=== PATIENT | female | born 1985 | race Caucasian/White ===

== ENCOUNTER → 2016-07-17 | Outpatient (CLI) | payer BC ==
[~2016-07-17] MED LIST: MTR600X PO; OXYC-57 PO; PRENTAB26 PO
[2016-07-17 15:51] LABS: BASO % 0.1 %; BASO ABS # 0.01 K/uL (0-0.2); COMPLETE YES; EOS % 0.6 %; HEMATOCRIT 37.3 % (37-47); IG% 0.3 %; LYMPH % 19.6 %; LYMPH ABS # 1.97 K/uL (1.2-3.4); MEAN CELL VOLUME 84.4 fL (80-100); MEAN CORPUSCULAR HEMOGLOBIN 30.1 pg (25-34); MEAN CORPUSCULAR HGB CONC 35.7 g/dl (32-36); MEAN PLATELET VOLUME 9.3 fL (7.4-10.4); MONO % 4.6 %; NEUT % 74.8 %; PLATELET COUNT 196 K/uL (130-400); RED BLOOD COUNT 4.42 M/uL (4.2-5.4); WHITE BLOOD COUNT 10.07 K/uL (4.8-10.8)
[2016-07-21 01:40] LABS: CHLAMYDIA TRACH RNA*** NOT DETECTED (NOT DETECTED); GC (NEIS GONORRHOEAE)RNA** NOT DETECTED (NOT DETECTED)
== END | disposition home or self-care (01) ==
LOC: C.LAB1850 15:01
PROVIDERS: ATTEND Obstetrics & Gynecology
DX: O09.291 Supervision of pregnancy with other poor reproductive or obstetric history, first trimester (principal)

== ENCOUNTER → 2016-11-27 | Outpatient (CLI) | payer BC ==
[2016-11-27 18:21] LABS: MANUAL MICROSCOPIC REQUIRED? NO; REVIEW REQ? NO; URINE APPEARANCE CLOUDY (CLEAR); URINE BILIRUBIN NEG (NEG); URINE COLOR YELLOW; URINE EPITHELIAL CELL AUTO >30 /lpf (0-5); URINE NITRITE NEG (NEG); URINE SPECIFIC GRAVITY 1.013 (1.000-1.030); UROBILINOGEN NEG (NEG)
== END | disposition home or self-care (01) ==
LOC: C.LABSPEC 17:46
PROVIDERS: ATTEND Obstetrics & Gynecology
DX: O34.219 Maternal care for unspecified type scar from previous cesarean delivery (principal); Z3A.00 Weeks of gestation of pregnancy not specified

== ENCOUNTER → 2017-01-27 | Outpatient (CLI) | payer BC | END | disposition home or self-care (01) | LOC: C.LABSPEC 15:32 | PROVIDERS: ATTEND Obstetrics & Gynecology | DX: Z34.83 Encounter for supervision of other normal pregnancy, third trimester (principal) ==

== ENCOUNTER 2017-02-15 07:22 | Inpatient (IN) | payer BC ==
--- NOTE | 2017-01-27 15:13 | PAT Medication Instructions ---
Service Date Jan 27, 2017. Current Home Medication List Multivit/Min/Iron/Fol Ac/Pren ( Vitamin), 1 TAB PO QPM Medication Instructions For Your Scheduled Surgery - Take the following medications as scheduled the night before surgery: Multivit/Min/Iron/Fol Ac/Pren ( Vitamin), 1 TAB PO QPM If you have any questions please call us at [phone] or [phone] or [phone]
[2017-01-27 16:39] LABS: BASO % 0.1 %; BASO ABS # 0.01 K/uL (0-0.2); COMPLETE YES; EOS % 0.7 %; HEMATOCRIT 35.4 % (37-47); IG% 0.5 %; LYMPH % 16.2 %; LYMPH ABS # 1.77 K/uL (1.2-3.4); MEAN CELL VOLUME 86.8 fL (80-100); MEAN CORPUSCULAR HEMOGLOBIN 29.7 pg (25-34); MEAN CORPUSCULAR HGB CONC 34.2 g/dl (32-36); MEAN PLATELET VOLUME 9.4 fL (7.4-10.4); MONO % 5.4 %; NEUT % 77.1 %; PLATELET COUNT 186 K/uL (130-400); RED BLOOD COUNT 4.08 M/uL (4.2-5.4)
[2017-01-27 16:41] LABS: BLOOD UREA NITROGEN 10 mg/dl (7-18); BUN/CREATININE RATIO 18.3 (10-20); CALCIUM 9.1 mg/dl (8.5-10.1); CARBON DIOXIDE 22 mmol/L (21-32); CHLORIDE 108 mmol/L (98-107); CREATININE 0.56 mg/dl (0.60-1.20); GLUCOSE 132 mg/dl (70-99); POTASSIUM 3.7 mmol/L (3.5-5.1); SODIUM 140 mmol/L (136-145)
--- NOTE | 2017-01-28 19:44 | History and Physical ---
History & Physical Date Jan 28, 2017. Chief Complaint hx of previous c/s, desires repeat. History of Present Illness The patient is a 31 year old female with iup at 39+ weeks who presents for repeat c/s. Patient notes +fm, rare contractions, no lof, no vb. Her first was complicated by failure to descend, thick meconium and NRFHT, 8# 11oz. She declines NEELAM. She declines TL. She has diet-controlled GDM that has been well controlled. Past Medical/Surgical History Pmhx--hx of varicella psxhx--colpo 2011, oral, c/s Additional History Hepatic Disease: No Endocrine Disorder: No Kidney Disease: No Hypertension: No Heart Disease: No Bleeding Tendencies: No Infectious Diseases: No LMP: Allergies Coded Allergies: No Known Allergies (Unverified , 01/27/17) Home Medications Scheduled Multivit/Min/Iron/Fol Ac/Pren ( Vitamin), 1 TAB PO QPM Physical Examination Skin: warm/dry Neck: supple, no adenopathy Respiratory/Chest: lungs clear, normal breath sounds Cardiovascular: regular rate, rhythm Abdomen / GI: + pertinent finding (soft, gravid and nontender.) Extremities: normal inspection Neurologic/Psych: alert, oriented x 3 Diagnosis IUP at 39 weeks. hx of previous c/s, desires repeat. Plan of Treatment Plan repeat . the risks of the procedure were discussed with the patient including bleeding requiring a transfusion, infection and poor wound healing, damage to surrounding structures (bowel, bladder, vessels, nerves, ureters) that may require further surgery, hospitalization or treatment, pulmonary complications, DVT, injury to baby. The risks of any surgery discussed including heart attack, blood clot, stroke and . Alternatives include trial of labor which she declines. c/s planned for 02/15.
[~2017-02-15] VITALS: Ht 157.5 cm; Wt 65.9 kg
[2017-02-15] VITALS (9 sets, daily range): BP systolic 121–123; BP diastolic 73–77; PULSE 79–91; TEMP 36.5–36.8; O2SAT 97–99; Ht 157.5 cm; Wt 65.9 kg
[~2017-02-15 07:22] MED LIST changes: -MTR600X PO; -OXYC-57 PO
[2017-02-15] MEDS ORDERED: CITRIC ACID/SODIUM CITRATE 15 ML UDC PO STA (08:16)
[2017-02-15 08:30] LABS: BASO % 0.1 %; BASO ABS # 0.01 K/uL (0-0.2); COMPLETE YES; EOS % 0.8 %; HEMATOCRIT 36.5 % (37-47); IG% 0.4 %; LYMPH % 20.3 %; LYMPH ABS # 1.87 K/uL (1.2-3.4); MEAN CELL VOLUME 87.1 fL (80-100); MEAN CORPUSCULAR HEMOGLOBIN 29.6 pg (25-34); MEAN PLATELET VOLUME 9.4 fL (7.4-10.4); NEUT % 71.4 %; PLATELET COUNT 170 K/uL (130-400); RED BLOOD COUNT 4.19 M/uL (4.2-5.4); WHITE BLOOD COUNT 9.23 K/uL (4.8-10.8)
[2017-02-15] MEDS ORDERED: CEFAZOLIN 2000 MG/60 ML D5W IV SCH (09:00)
[2017-02-15] MEDS ORDERED: NURSING VERBAL MED ORDER ONE (09:00)
[2017-02-15] MEDS: LACTATED RINGER'S 1000ML 1,000 ML IV SCH (09:04)
[2017-02-15] MEDS ORDERED: MoRPHine SULFATE PF 1 MG/ML 10 ML AMP/VIAL ONE (09:34)
[2017-02-15] MEDS ORDERED: EpHEDrine SULFATE 50MG/5ML SYR ONE (09:34)
[2017-02-15] MEDS ORDERED: OXYTOCIN INJ 10 UNITS/ML VIAL ONE (09:34)
--- NOTE | 2017-02-15 09:48 | History & Physical Bridge Note ---
H&P Re-Evaluation Bridge Note: I have examined the patient, reviewed the History & Physical and in the interval since the performance of the History & Physical I have noted the following changes of clinical significance: No changes noted
[2017-02-15] MEDS ORDERED: FENTANYL CITRATE INJ 50 MCG/1 ML 2 ML VIAL ONE (10:53)
[2017-02-15] MEDS ORDERED: NALOXONE HCL INJ 0.08 MG in SYRINGE 1.8 ML IV PRN (10:58)
[2017-02-15] MEDS ORDERED: SODIUM CHLORIDE 0.9% 1000ML 1,000 ML IV PRN (10:58)
[2017-02-15] MEDS ORDERED: NALOXONE HCL INJ 1 MG in SODIUM CHLORIDE 0.9% 1000ML 1,000 ML IV PRN (10:58)
[2017-02-15] MEDS ORDERED: LACTATED RINGER'S 1000ML 500 ML IV PRN (10:58)
[2017-02-15] MEDS ORDERED: NO NARCOTICS OR SEDATIVES SCH (11:00)
[2017-02-15] MEDS ORDERED: DiphenhydrAMINE HCL 50 MG/ML VIAL IV PRN ×2 (11:00)
[2017-02-15] MEDS ORDERED: NALOXONE HCL 0.4 MG/1 ML VIAL/CARP IV PRN (11:00)
[2017-02-15] MEDS ORDERED: EpHEDrine SULFATE INJ 50 MG/ML AMP IV PRN ×2 (11:00)
[2017-02-15] MEDS ORDERED: MEPERIDINE HCL 25 MG/ML CARP IV PRN ×2 (11:00)
[2017-02-15] MEDS ORDERED: MoRPHine SULFATE 2 MG/ML CARP IV PRN (11:00)
[2017-02-15] MEDS ORDERED: MoRPHine SULFATE PF 1 MG/ML 10 ML AMP/VIAL EPI PRN (11:00)
[2017-02-15] MEDS ORDERED: HYDROmorphone INJ 1 MG/ML SYR IV PRN (11:00)
[2017-02-15] MEDS ORDERED: KETOROLAC TROMETHAMINE 30 MG/ML VIAL IV. PRN (11:00)
[2017-02-15] MEDS ORDERED: LABETALOL HCL IV 5 MG/ML 20ML IV PRN (11:00)
[2017-02-15] MEDS ORDERED: FENTANYL CITRATE INJ 50 MCG/1 ML 2 ML VIAL IV PRN (11:00)
[2017-02-15] MEDS ORDERED: NALBUPHINE HCL INJ 10 MG/ML AMP IV PRN (11:00)
[2017-02-15] MEDS ORDERED: ONDANSETRON INJ 2 MG/ML 2 ML VIAL IV PRN ×2 (11:00)
[2017-02-15] MEDS ORDERED: ATROPINE SULFATE 0.1 MG/ML 5ML SYR IV PRN (11:00)
[2017-02-15] MEDS ORDERED: LACTATED RINGER'S 1000ML 1,000 ML IV SCH (11:01)
--- NOTE | 2017-02-15 11:12 | [facility] Post Operative Brief Note ---
Immediate Operative Summary Operative Date Feb 15, 2017. Pre-Operative Diagnosis at 39 weeks;History of Previous Caesarean Section; Desies Repeat Caesaean Section Post-Operative Diagnosis Same Procedure(s) Performed Repeat Caesarean Section; Delivery of a live male child at [address] Pop Security System Technician Surgeon(s) Dr. Zamarripa Estimated Blood Loss 600 CC Findings viable male infant in cephalic presentation, apgars 8/9, nl utx, tubes, ovs Fluids (cc crystalloids) 900cc Specimens cord blood placenta- Drains andino Anesthesia spinal Complication(s) None Disposition L&D
[2017-02-15] MEDS ORDERED: LANOLIN OINT EXT PRN ×2 (11:15)
[2017-02-15] MEDS ORDERED: DC PCA PRN (11:15)
[2017-02-15] MEDS ORDERED: MEASLES, MUMPS & RUBELLA VIRUS VIAL SQ. ONE (11:15)
[2017-02-15] MEDS ORDERED: DIPHTHERIA/TETANUS/PERTUSSIS 0.5 ML SYR/VIAL IM. ONE (11:15)
--- NOTE | 2017-02-15 11:22 | Medical Student: [facility] ---
Operative Report Operative Date Feb 15, 2017. Pre-Operative Diagnosis 31 YR, at 39+ weeks, desires repeat Post-Operative Diagnosis Delivery after repeat Procedure(s) Performed Repeat low transverse Surgeon Dr. Pop Milk Route Deliverer Surgeon(s) Dr. Zamarripa Estimated Blood Loss 600 CC Findings Viable male infant, 8/9, at 7 lbs 9 ozs. Normal anatomy including normal uterus, fallopian tubes, ovaries. Fluids (cc crystalloids) 900 CC Specimens Cord blood Placenta Drains [place] catheter Anesthesia Spinal Complication(s) None Disposition L&D
[2017-02-15] MEDS ORDERED: OXYTOCIN INJ 20 UNITS in LACTATED RINGER'S 1000ML 1,000 ML IV SCH (11:30)
--- NOTE | 2017-02-15 12:18 | Anesthesiology Progress Note ---
Anesthesia Post Op Note Date & Time Feb 15, 2017 at 12:18 Notes Mental Status: alert / awake / arousable, participated in evaluation Pt Amnestic to Procedure: Yes Nausea / Vomiting: adequately controlled Pain: adequately controlled Airway Patency, RR, SpO2: stable & adequate BP & HR: stable & adequate Hydration State: stable & adequate Neuraxial Anesthesia: was administered, sensory block is resolving Anesthetic Complications: no major complications apparent
[2017-02-15] MEDS: SIMETHICONE 80 MG CHEW PO SCH ×3 (13:00→19:54)
--- NOTE | 2017-02-15 13:09 | OPERATIVE REPORT ---
DATE OF OPERATION: 02/15/2017 PREOPERATIVE DIAGNOSES: 1. Intrauterine at 39 weeks. 2. History of previous section, desires repeat. POSTOPERATIVE DIAGNOSES: Same. PROCEDURE: Repeat lower transverse section.. SURGEON: Dr. Marbella Pop. ERGONOMIC SPECIALIST: Edgardo Zamarripa, PGY-1 and Rosa Kinsey, MS 3. ANESTHESIA: Spinal. ESTIMATED BLOOD LOSS: 600 mL. FLUIDS: 900 mL. URINE OUTPUT: 150 mL of clear yellow urine draining from the bladder at the end of the procedure. INDICATIONS: The patient is a 2, para 1-0-0-1, who had a previous section for failure to descend. She desires repeat . FINDINGS: Viable male infant in cephalic presentation. Nuchal cord x1. Normal uterus, tubes, and ovaries were noted bilaterally. Apgars 8 and 9. COMPLICATIONS: None. DRAINS: [place]. DISPOSITION: To recovery room in stable condition. DESCRIPTION OF PROCEDURE: The patient was taken to the operating room, where she was identified verbally and by bracelet. She was seated on the operating table, where spinal anesthetic was placed by anesthesia. She was then placed in dorsal supine position with a leftward tilt. A [place] catheter was placed sterilely. She was prepped and draped in normal sterile fashion. Her anesthetic was tested and found to be adequate. A time-out was held identifying correct patient, procedure and positioning. A Pfannenstiel skin incision was made over the previous incision with the knife. This was taken down to the underlying layer of fascia with the knife. Bovie electrocautery was used for hemostasis. The fascia was incised in the midline with the knife and taken out laterally with scissors. Superior edge of the fascial incision was grasped, elevated and the underlying layer of rectus muscle was taken off bluntly and with scissors. In a similar fashion, the inferior edge of the fascial incision was grasped, elevated and the underlying layer of rectus muscle was taken off bluntly and with scissors. The muscles were sharply in the midline. The peritoneum was entered by grasping bilaterally with snaps and entering sharply with scissors. It was found to be free of adhesions and was taken superiorly and inferiorly with scissors with good visualization. The incision was stretched. A bladder blade was placed. The bladder flap was created by grasping with a snap and incising with scissors and the bladder flap was created both sharply with scissors and digitally. The bladder blade was replaced. Hysterotomy was made with the knife and was scored with a knife. An amniotic sac was entered with a snap. Clear fluid was noted. The incision was stretched with the linecasting machine keyboard operator's fingers. First, we attempted to deliver the head through the incision. The incision was a bit too tight. Bandage scissors were used bilaterally to increase the incision width and then, the baby was delivered atraumatically through the incision. The nose and mouth were bulb suctioned, loose nuchal cord x1 was reduced and the rest of the infant was then delivered without difficulty. The nose and mouth were again bulb suctioned. There was immediate cry. The cord was clamped and cut. The infant was handed off to waiting oim architect for drying and attention. Cord blood and segment were obtained. Placenta was expressed. The uterus was exteriorized and cleared of all clot and debris with moistened laparotomy sponges. The hysterotomy incision was closed in 2 layers of 0 Vicryl, the first in a running locked layer and the second in an imbricating layer. The posterior cul-de-sac was then irrigated and cleared of all clot and debris. Hysterotomy incision was again inspected and found to be hemostatic. The uterus was reinteriorized. The hysterotomy incision was again inspected and found to be hemostatic. The muscles were reapproximated in the midline with 0 Vicryl and several interrupted sutures and the fascia was reapproximated with 0 Vicryl meeting in the midline. The subcuticular tissue was irrigated and found to be hemostatic. The skin was closed with subcuticular stitch of 4-0 Vicryl. All sponge, lap and needle counts were correct x2. The patient tolerated the procedure well and was taken to recovery room in stable condition. I attest to the content of the Intraoperative Record and any orders documented therein. Any exceptions are noted below. MTDD
[2017-02-15] MEDS ORDERED: DEXAMETHASONE INJ 4 MG in SYRINGE 0 ML IV PRN (17:15)
[2017-02-15] MEDS: DOCUSATE SODIUM 100 MG CAP PO SCH (19:54)
[2017-02-16] VITALS (10 sets, daily range): BP systolic 102–117; BP diastolic 64–79; PULSE 78–98; TEMP 36.8–37; O2SAT 96–100
--- NOTE | 2017-02-16 01:35 | OB/GYN Progress Note ---
COMMISSION AUDIT[employer] Progress Note Date of Service Feb 16, 2017. Subjective conversation w/ patient, physical exam, chart review, lab review Ambulation: limited ambulation Voiding: no voiding problems Passing Gas: Yes Diet Tolerance: Regular Diet Lochia: Small Feeding Type: Breast Feeding Pain: 0/10 post meds Notes: reports occasional dizziness but improving Review of Systems Constitutional: No fever Respiratory: No shortness of breath Cardiac: No chest pain Abdomen: No nausea, No vomiting Female : No dysuria Objective Vital Signs Date Time Temp Pulse Resp B/P (MAP) Pulse Ox O2 Delivery O2 Flow Rate FiO2 02/16/17 00:40 18 100 02/16/17 00:00 36.8 98 18 117/79 (92) 100 Room Air 02/16/17 00:00 100 Room Air 02/15/17 23:40 18 99 02/15/17 22:40 20 99 02/15/17 21:40 18 98 02/15/17 20:40 17 99 02/15/17 19:40 18 99 02/15/17 19:40 36.8 84 18 121/74 (90) 99 Room Air 02/15/17 18:45 20 99 02/15/17 18:00 16 99 02/15/17 16:45 36.5 91 20 121/77 (92) 97 Room Air 02/15/17 15:40 16 98 02/15/17 15:40 36.5 79 16 123/73 (90) 98 Room Air 02/15/17 15:40 98 Room Air Physical Exam General Appearance: WELL-APPEARING Respiratory/Chest: lungs clear, normal breath sounds, no respiratory distress Cardiovascular: regular rate, rhythm Abdomen: normal bowel sounds, non tender, soft Fundus: Firm, Relation to Umbilicus (2 FB) Incision Description: Clean, Dry & Intact Extremities: non-tender, no pedal edema Laboratory Results Last 24 Hours Test 02/15/17 07:31 White Blood Count 9.23 K/uL Red Blood Count 4.19 M/uL Hemoglobin 12.4 g/dL Hematocrit 36.5 % Mean Corpuscular Volume 87.1 fL Mean Corpuscular Hemoglobin 29.6 pg Mean Corpuscular Hemoglobin Concent 34.0 g/dl Platelet Count 170 K/uL Mean Platelet Volume 9.4 fL Neutrophils (%) (Auto) 71.4 % Lymphocytes (%) (Auto) 20.3 % Monocytes (%) (Auto) 7.0 % Eosinophils (%) (Auto) 0.8 % Basophils (%) (Auto) 0.1 % Neutrophils # (Auto) 6.59 K/uL Lymphocytes # (Auto) 1.87 K/uL Monocytes # (Auto) 0.65 K/uL Eosinophils # (Auto) 0.07 K/uL Basophils # (Auto) 0.01 K/uL RDW Standard Deviation 40.8 fL RDW Coefficient of Variation 12.7 % Immature Granulocyte % (Auto) 0.4 % Immature Granulocyte # (Auto) 0.04 K/uL Medications Current Inpatient Medications Medications (Trade) Dose Ordered Sig/Kirk Route Start Time Stop Time Status Last Admin Dose Admin Miscellaneous Information (Order Awaiting Action) 1 ea QS N/A 02/15/17 16:00 03/17/17 15:59 Naloxone HCl (Narcan Inj) 0.1 mg UD PRN IV 02/15/17 11:00 02/16/17 04:30 Diphenhydramine HCl (Benadryl Inj) 25 mg Q6H PRN IV 02/15/17 11:00 02/16/17 04:30 Nalbuphine HCl (Nubain Inj) 5 mg Q10M PRN IV 02/15/17 11:00 02/16/17 04:30 Naloxone HCl 1 mg/ Sodium Chloride 1,002.5 ml @ 50 mls/hr Q20H3M PRN IV 02/15/17 10:58 02/16/17 04:30 Ondansetron HCl (Zofran Inj) 4 mg Q6H PRN IV 02/15/17 11:00 02/16/17 04:30 02/15/17 15:05 4 MG Ketorolac Tromethamine (Toradol Inj) 30 mg Q6H PRN IV. 02/15/17 11:00 02/16/17 04:30 02/15/17 13:04 30 MG Meperidine HCl (Demerol Inj) 25 mg Q15M PRN IV 02/15/17 11:00 02/16/17 04:30 Miscellaneous Information (Dc Intraspinal Morphine) 1 ea TODAY@0430 ONCE N/A 02/16/17 04:30 02/16/17 04:31 Miscellaneous Information (No Narcotics Or Sedatives) 1 ea UD N/A 02/15/17 11:00 02/16/17 04:30 Naloxone HCl 0.08 mg/Syringe 2 ml @ 1 mls/min Q2M PRN IV 02/15/17 10:58 02/16/17 04:30 Diphenhydramine HCl (Benadryl Cap) 50 mg HS PRN PO 02/15/17 11:00 02/16/17 04:30 Diphenhydramine HCl (Benadryl Inj) 25 mg HS PRN IV 02/15/17 11:00 02/16/17 04:30 Morphine Sulfate (MoRPHine SULFATE INJ) 2 mg Q6H PRN IV 02/15/17 11:00 02/16/17 04:30 Lactated Ringer's 500 ml @ 999 mls/hr Q31M PRN IV 02/15/17 10:58 02/16/17 04:30 Ephedrine Sulfate (EpHEDrine SULFATE INJ) 10 mg Q5M PRN IV 02/15/17 11:00 02/16/17 04:30 Morphine Sulfate (Duramorph Pf Inj) TODAY PRN EPI 02/15/17 11:00 02/16/17 04:30 Sodium Chloride 1,000 ml @ 15 mls/hr Q24H PRN IV 02/15/17 10:58 02/16/17 04:30 Lactated Ringer's 1,000 ml @ 125 mls/hr Q8H IV 02/15/17 11:01 03/17/17 11:00 Ketorolac Tromethamine (Toradol Inj) 30 mg Q6H PRN IV. 02/16/17 04:30 02/21/17 04:29 Meperidine HCl (Demerol Inj) 50 mg Q4H PRN IV 02/16/17 04:30 03/02/17 04:29 Meperidine HCl (Demerol Inj) 75 mg Q4H PRN IV 02/16/17 04:30 03/02/17 04:29 Oxycodone/ Acetaminophen (Percocet 5-325mg Tab) 1 tab Q4H PRN PO 02/16/17 04:30 03/02/17 04:29 Oxycodone/ Acetaminophen (Percocet 5-325mg Tab) 2 tab Q4H PRN PO 02/16/17 04:30 03/02/17 04:29 Ibuprofen (Motrin Tab) 600 mg Q4H PRN PO 02/15/17 11:15 03/17/17 11:14 Prenat Multivit/ [place]/Iron/Folic Ac ( Vitamin Tab) 1 tab DAILY PO 02/16/17 08:00 03/18/17 07:59 Docusate Sodium (coLACE CAP) 100 mg BID PO 02/15/17 20:00 03/17/17 19:59 02/15/17 19:54 100 MG Lanolin (Lanolin Oint) PRN PRN EXT 02/15/17 11:15 03/17/17 11:14 Simethicone (Mylicon Chew Tab) 80 mg QID PO 02/15/17 13:00 03/17/17 12:59 02/15/17 19:54 80 MG Diphenhydramine HCl (Benadryl Cap) 25 mg QID PRN PO 02/16/17 04:30 03/18/17 04:29 Diphenhydramine HCl (Benadryl Inj) 25 mg QID PRN IV 02/16/17 04:30 03/18/17 04:29 Miscellaneous Information (Order Awaiting Action) 1 ea QS N/A 02/15/17 16:00 03/17/17 15:59 Dexamethasone Sodium Phosphate 4 mg/Syringe 1 ml @ 1 mls/min Q6HWA PRN IV 02/15/17 17:15 02/16/17 17:08 02/15/17 18:30 1 MLS/MIN Assessment and Plan Post-Op Day Number: 1 Continue Routine Care: In my clinical judgment this beneficiary meets acute admission criteria, established by [facility], that includes being hospitalized through two midnights.A/P: This is a 30 y/o female, , POD#1 s/p repeat . She is clinically stable. Plan: - Vitals signs are reviewed and WNL (Tmax 36.9) - Last Hgb is 12.4 (02/15). This AM pending - Blood type O+, GBS neg, Rubella equivocal (will immunize) - Routine post operative care - Encourage ambulation, monitor and control pain with medication as needed, continue with regular diet as tolerated and monitor lochia - Stool softeners and sitz bath recommended - Encourage breast feeding and educate about breast feeding Resident Involvement: Resident Care Provided Care Provided: OB Delivery
[2017-02-16] MEDS ORDERED: OXYCODONE/ACETAMINOPHEN 5-325 TAB PO PRN ×2 (04:30)
[2017-02-16] MEDS ORDERED: KETOROLAC TROMETHAMINE 30 MG/ML VIAL IV. PRN (04:30)
[2017-02-16] MEDS ORDERED: MEPERIDINE HCL 50 MG/ML CARP IV PRN ×2 (04:30)
[2017-02-16] MEDS ORDERED: DC INTRASPINAL MORPHINE ONE (04:30)
[2017-02-16] MEDS ORDERED: DiphenhydrAMINE HCL 50 MG/ML VIAL IV PRN (04:30)
--- NOTE | 2017-02-16 06:52 | Medical Student: [facility] ---
Med Student [employer] Progress Nt Date of Service Feb 16, 2017. Subjective conversation w/ patient Ambulation: limited ambulation Voiding: andino catheter in place Passing Gas: Yes Diet Tolerance: Clear Liquids, Nausea/Vomiting (post-anesthesia; feeling better this morning ) Lochia: Moderate Feeding Type: Breast Feeding Notes: This is a 31-year-old, female who is post-op day 1, s/p done due to one prior C section. There were no complications with her surgery and she states she is recovering well besides some pain around her incision site. Was given Toradol this morning and is feeling better. Blood type is O positive, GBS negative. She has not ambulated yet and just had her Andino catheter removed, so she has not voided on her own yet. States that she has had some gas but no bowel movement yet. She has had some bleeding from the vagina but states that it is not severe or concerning to her. Her pain is mild this morning. She has not been able to eat a normal diet due to some nausea, vomiting, and dizziness post-anesthesia but is feeling better and will try to eat breakfast. Patient is breast-feeding her baby and states that he latched well last night. Denies headache, chest pain, shortness of breath, and leg/calf pain. Review of Systems Constitutional: No fever, No chills, No sweats, No weight loss, No weakness, No fatigue, No problem reported Respiratory: No cough, No sputum, No wheezing, No shortness of breath, No dyspnea on exertion, No dyspnea at rest, No hemoptysis, No problem reported Cardiac: No chest pain, No orthopnea, No PND, No edema, No claudication, No palpitations, No problem reported Breast: No see HPI, No breast lump, No change in shape, No nipple discharge, No breast pain, No problem reported Abdomen: + pain (mild pain around incision site), + nausea Female : + problem reported (Has not yet voided on her own due to Andino) Vitals are stable; max temp 36.9C, HR 79, BP 115/73. On physical exam the uterine fundus is 2 cm below the umbilicus and is firm. Lungs are clear to auscultation and heart is regular rate and rhythm. There is no swelling or tenderness in her lower extremities. Assessment/plan: This is a 31-year-old female who is post-op day 1, low transverse section. Vitals are reviewed and stable. Provide routine post- section care. Continue to monitor for bleeding (pre-op Hb 12.4, post-op labs pending). Control pain with toradol and oxycodone. Encourage ambulation and breast feeding. Objective Vital Signs Date Time Temp Pulse Resp B/P (MAP) Pulse Ox O2 Delivery O2 Flow Rate FiO2 02/16/17 04:30 18 98 02/16/17 04:15 36.9 79 20 115/73 (87) 99 Room Air 02/16/17 03:40 17 100 02/16/17 02:40 17 100 02/16/17 01:40 19 98 02/16/17 00:40 18 100 02/16/17 00:00 36.8 98 18 117/79 (92) 100 Room Air 02/16/17 00:00 100 Room Air 02/15/17 23:40 18 99 02/15/17 22:40 20 99 02/15/17 21:40 18 98 02/15/17 20:40 17 99 02/15/17 19:40 18 99 02/15/17 19:40 36.8 84 18 121/74 (90) 99 Room Air 02/15/17 18:45 20 99 02/15/17 18:00 16 99 02/15/17 16:45 36.5 91 20 121/77 (92) 97 Room Air 02/15/17 15:40 16 98 02/15/17 15:40 36.5 79 16 123/73 (90) 98 Room Air 02/15/17 15:40 98 Room Air Laboratory Results Last 24 Hours Test 02/15/17 07:31 02/16/17 06:00 White Blood Count 9.23 K/uL Red Blood Count 4.19 M/uL Hemoglobin 12.4 g/dL Hematocrit 36.5 % Mean Corpuscular Volume 87.1 fL Mean Corpuscular Hemoglobin 29.6 pg Mean Corpuscular Hemoglobin Concent 34.0 g/dl Platelet Count 170 K/uL Mean Platelet Volume 9.4 fL Neutrophils (%) (Auto) 71.4 % Lymphocytes (%) (Auto) 20.3 % Monocytes (%) (Auto) 7.0 % Eosinophils (%) (Auto) 0.8 % Basophils (%) (Auto) 0.1 % Neutrophils # (Auto) 6.59 K/uL Lymphocytes # (Auto) 1.87 K/uL Monocytes # (Auto) 0.65 K/uL Eosinophils # (Auto) 0.07 K/uL Basophils # (Auto) 0.01 K/uL RDW Standard Deviation 40.8 fL RDW Coefficient of Variation 12.7 % Immature Granulocyte % (Auto) 0.4 % Immature Granulocyte # (Auto) 0.04 K/uL Assessment and Plan Post-Op Day Number: 1
[2017-02-16 07:31] LABS: BASO % 0.1 %; BASO ABS # 0.01 K/uL (0-0.2); COMPLETE YES; EOS % 0.3 %; HEMATOCRIT 32.8 % (37-47); IG% 0.6 %; LYMPH % 13.2 %; LYMPH ABS # 2.11 K/uL (1.2-3.4); MEAN CELL VOLUME 87.2 fL (80-100); MEAN CORPUSCULAR HEMOGLOBIN 30.1 pg (25-34); MEAN CORPUSCULAR HGB CONC 34.5 g/dl (32-36); MEAN PLATELET VOLUME 9.2 fL (7.4-10.4); MONO % 6.1 %; NEUT % 79.7 %; PLATELET COUNT 200 K/uL (130-400); RED BLOOD COUNT 3.76 M/uL (4.2-5.4); WHITE BLOOD COUNT 16.01 K/uL (4.8-10.8)
[2017-02-16] MEDS: SIMETHICONE 80 MG CHEW PO SCH ×4 (07:55→19:42)
[2017-02-16] MEDS: PRENATAL VITAMIN TAB PO SCH (07:55)
[2017-02-16] MEDS: DOCUSATE SODIUM 100 MG CAP PO SCH ×2 (07:55→19:42)
--- NOTE | 2017-02-16 10:49 | Anesthesiology Progress Note ---
Anesthesia Post Op Note Date & Time Feb 16, 2017 at 10:49 Vital Signs Pain Intensity: 2.0 Vital Signs Past 12 Hours Date Time Temp Pulse Resp B/P (MAP) Pulse Ox O2 Delivery O2 Flow Rate FiO2 02/16/17 07:55 Room Air 02/16/17 07:19 37.0 78 20 114/72 (86) 99 Room Air 02/16/17 04:30 18 98 02/16/17 04:15 36.9 79 20 115/73 (87) 99 Room Air 02/16/17 03:40 17 100 02/16/17 02:40 17 100 02/16/17 01:40 19 98 02/16/17 00:40 18 100 02/16/17 00:00 36.8 98 18 117/79 (92) 100 Room Air 02/16/17 00:00 100 Room Air 02/15/17 23:40 18 99 Notes Mental Status: alert / awake / arousable, participated in evaluation Pt Amnestic to Procedure: Yes Nausea / Vomiting: adequately controlled Pain: adequately controlled Airway Patency, RR, SpO2: stable & adequate BP & HR: stable & adequate Hydration State: stable & adequate Neuraxial Anesthesia: was administered, sensory block resolved Anesthetic Complications: no major complications apparent
[2017-02-16] MEDS: SULFACETAMIDE SODIUM 10% OPR SCH ×3 (12:26→19:43)
[2017-02-16] MEDS: IBUPROFEN 600 MG TAB PO PRN (12:50)
[2017-02-16] MEDS ORDERED: ERYTHROMYCIN OP SCH (22:00)
[2017-02-17] VITALS: BP 117/71; PULSE 81; TEMP 36.9; O2SAT 99
[2017-02-17] MEDS: IBUPROFEN 600 MG TAB PO PRN ×2 (00:07→07:57)
--- NOTE | 2017-02-17 06:07 | OB/GYN Progress Note ---
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 Subjective conversation w/ patient, physical exam, chart review, lab review Ambulation: ambulating normally Voiding: no voiding problems Diet Tolerance: Regular Diet Lochia: Small Feeding Type: Breast Feeding Pain: 2/10 pain Review of Systems Constitutional: No fever Respiratory: No shortness of breath Cardiac: No chest pain Abdomen: No nausea, No vomiting Female : No dysuria Objective Vital Signs Date Time Temp Pulse Resp B/P (MAP) Pulse Ox O2 Delivery O2 Flow Rate FiO2 02/17/17 00:00 Room Air 02/17/17 00:00 36.9 81 16 117/71 (86) 99 Room Air 02/16/17 16:00 36.9 85 18 117/73 (88) Room Air 02/16/17 16:00 Room Air 02/16/17 11:10 37.0 78 20 102/64 (77) 96 Room Air 02/16/17 07:55 Room Air 02/16/17 07:19 37.0 78 20 114/72 (86) 99 Room Air Physical Exam General Appearance: WELL-APPEARING Respiratory/Chest: lungs clear, normal breath sounds, no respiratory distress Cardiovascular: regular rate, rhythm Abdomen: normal bowel sounds, non tender, soft Fundus: Firm, Relation to Umbilicus (3 FB below) Incision Description: Clean, Dry & Intact Extremities: non-tender, no pedal edema Laboratory Results Last 24 Hours Test 02/16/17 06:50 02/17/17 06:00 White Blood Count 16.01 K/uL Red Blood Count 3.76 M/uL Hemoglobin 11.3 g/dL Hematocrit 32.8 % Mean Corpuscular Volume 87.2 fL Mean Corpuscular Hemoglobin 30.1 pg Mean Corpuscular Hemoglobin Concent 34.5 g/dl Platelet Count 200 K/uL Mean Platelet Volume 9.2 fL Neutrophils (%) (Auto) 79.7 % Lymphocytes (%) (Auto) 13.2 % Monocytes (%) (Auto) 6.1 % Eosinophils (%) (Auto) 0.3 % Basophils (%) (Auto) 0.1 % Neutrophils # (Auto) 12.78 K/uL Lymphocytes # (Auto) 2.11 K/uL Monocytes # (Auto) 0.97 K/uL Eosinophils # (Auto) 0.05 K/uL Basophils # (Auto) 0.01 K/uL RDW Standard Deviation 40.1 fL RDW Coefficient of Variation 12.5 % Immature Granulocyte % (Auto) 0.6 % Immature Granulocyte # (Auto) 0.09 K/uL Medications Current Inpatient Medications Medications (Trade) Dose Ordered Sig/[place]irk Route Start Time Stop Time Status Last Admin Dose Admin Lactated Ringer's 1,000 ml @ 125 mls/hr Q8H IV 02/15/17 11:01 03/17/17 11:00 Ketorolac Tromethamine (Toradol Inj) 30 mg Q6H PRN IV. 02/16/17 04:30 02/21/17 04:29 02/16/17 04:27 30 MG Meperidine HCl (Demerol Inj) 50 mg Q4H PRN IV 02/16/17 04:30 03/02/17 04:29 Meperidine HCl (Demerol Inj) 75 mg Q4H PRN IV 02/16/17 04:30 03/02/17 04:29 Oxycodone/ Acetaminophen (Percocet 5-325mg Tab) 1 tab Q4H PRN PO 02/16/17 04:30 03/02/17 04:29 02/16/17 13:28 1 TAB Oxycodone/ Acetaminophen (Percocet 5-325mg Tab) 2 tab Q4H PRN PO 02/16/17 04:30 03/02/17 04:29 Ibuprofen (Motrin Tab) 600 mg Q4H PRN PO 02/15/17 11:15 03/17/17 11:14 02/17/17 00:07 600 MG Prenat Multivit/ [place]/Iron/Folic Ac ( Vitamin Tab) 1 tab DAILY PO 02/16/17 08:00 03/18/17 07:59 02/16/17 07:55 1 TAB Docusate Sodium (coLACE CAP) 100 mg BID PO 02/15/17 20:00 03/17/17 19:59 02/16/17 19:42 100 MG Lanolin (Lanolin Oint) PRN PRN EXT 02/15/17 11:15 03/17/17 11:14 Simethicone (Mylicon Chew Tab) 80 mg QID PO 02/15/17 13:00 03/17/17 12:59 02/16/17 19:42 80 MG Diphenhydramine HCl (Benadryl Cap) 25 mg QID PRN PO 02/16/17 04:30 03/18/17 04:29 Diphenhydramine HCl (Benadryl Inj) 25 mg QID PRN IV 02/16/17 04:30 03/18/17 04:29 Sulfacetamide Sodium (Sulfacetamide Sod 10% Oph Soln) 2 drops QID OPR 02/16/17 12:00 03/18/17 11:59 02/16/17 19:43 2 DROPS Erythromycin (Erythromycin Oph Oint) 1 appln HS OP 02/16/17 22:00 02/26/17 21:59 02/16/17 22:00 1 APPLN Assessment and Plan Post-Op Day Number: 2 Continue Routine Care: This is a 30 y/o female, , POD#2 s/p repeat . She is clinically stable. Plan: - Vitals signs are reviewed and WNL (Tmax 37) - Last Hgb is 11.3 (02/16). This AM pending - Blood type O+, GBS neg, Rubella equivocal (will immunize) - Routine post operative care - Encourage ambulation, monitor and control pain with medication as needed, continue with regular diet as tolerated and monitor lochia - Stool softeners and sitz bath recommended - Encourage breast feeding and educate about breast feeding Resident Physician Supervision Note: I interviewed and examined the patient. Discussed with Dr. Zamarripa and agree with findings and plan as documented in the note. Any exceptions or clarifications are listed here: [None] Documented By: Miriam Marinelli Resident Involvement: Resident Care Provided Care Provided: OB Delivery
--- NOTE | 2017-02-17 06:27 | Medical Student: [facility] ---
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 Subjective conversation w/ patient Ambulation: ambulating normally Voiding: no voiding problems Passing Gas: Yes Diet Tolerance: Regular Diet Lochia: Small Feeding Type: Breast Feeding Pain: 3-4/10 around incision Notes: This is a 31 year old, female who is post-op day 2 s/p low transverse section (hx of prior C section).There were no complications during the procedure or during recovery. Her blood type is O positive and she is GBS negative. She is ambulating well today and has had no problems or pain with voiding or passing gas. She states that she had a bowel movement this morning at 0400 and that she did have to strain a little. Her vaginal bleeding is mild, and her only pain is around her incision site, which she rate 3-4/10, especially when she coughs. Patient is eating a normal diet and denies nausea, vomiting, headache, dizziness, shortness of breath, and chest pain. Review of Systems Constitutional: No fever, No chills, No sweats, No weight loss, No weakness, No fatigue, No problem reported Respiratory: No cough, No sputum, No wheezing, No shortness of breath, No dyspnea on exertion, No dyspnea at rest, No hemoptysis, No problem reported Cardiac: No chest pain, No orthopnea, No PND, No edema, No claudication, No palpitations, No problem reported Breast: No see HPI, No breast lump, No change in shape, No nipple discharge, No breast pain, No problem reported Abdomen: + pain (incision site) Female : + see HPI Vitals are stable; max temp 37.0C, HR 81, BP 117/71. On physical exam the uterine fundus is 2-3 cm below the umbilicus and is firm. Lungs are clear to auscultation and heart is regular rate and rhythm. There is no swelling or tenderness in her lower extremities. Assessment/plan: This is a 31-year-old female who is post-op day 2, low transverse section. Vitals are reviewed and stable. Provide routine post- section care. Continue to monitor for bleeding (pre-op Hb 12.4, post-op Hb 11.3). Control pain with toradol and oxycodone. Encourage ambulation and breast feeding. Objective Vital Signs Date Time Temp Pulse Resp B/P (MAP) Pulse Ox O2 Delivery O2 Flow Rate FiO2 02/17/17 00:00 Room Air 02/17/17 00:00 36.9 81 16 117/71 (86) 99 Room Air 02/16/17 16:00 36.9 85 18 117/73 (88) Room Air 02/16/17 16:00 Room Air 02/16/17 11:10 37.0 78 20 102/64 (77) 96 Room Air 02/16/17 07:55 Room Air 02/16/17 07:19 37.0 78 20 114/72 (86) 99 Room Air Laboratory Results Last 24 Hours Test 02/16/17 06:50 02/17/17 06:00 White Blood Count 16.01 K/uL Red Blood Count 3.76 M/uL Hemoglobin 11.3 g/dL Hematocrit 32.8 % Mean Corpuscular Volume 87.2 fL Mean Corpuscular Hemoglobin 30.1 pg Mean Corpuscular Hemoglobin Concent 34.5 g/dl Platelet Count 200 K/uL Mean Platelet Volume 9.2 fL Neutrophils (%) (Auto) 79.7 % Lymphocytes (%) (Auto) 13.2 % Monocytes (%) (Auto) 6.1 % Eosinophils (%) (Auto) 0.3 % Basophils (%) (Auto) 0.1 % Neutrophils # (Auto) 12.78 K/uL Lymphocytes # (Auto) 2.11 K/uL Monocytes # (Auto) 0.97 K/uL Eosinophils # (Auto) 0.05 K/uL Basophils # (Auto) 0.01 K/uL RDW Standard Deviation 40.1 fL RDW Coefficient of Variation 12.5 % Immature Granulocyte % (Auto) 0.6 % Immature Granulocyte # (Auto) 0.09 K/uL Assessment and Plan Post-Op Day Number: 2
[2017-02-17] MEDS ORDERED: MTR600X PO (06:52)
[2017-02-17] MEDS ORDERED: OXYC-57 PO ×2 (06:52→07:38)
--- NOTE | 2017-02-17 06:53 | Discharge Instructions ---
Discharge Instructions Date of Service Feb 17, 2017. Admission Reason for Admission: Previous Section Discharge Discharge Diagnosis / Problem: after delivery Discharge Goals Goal(s): Routine recovery after delivery Medications Continue Dispensed Medications: supercream, dermaplast, tucks, lansinoh Activity Recommendations Activity Limitations: per Instructions/Follow-up section . Instructions / Follow-Up Instructions / Follow-Up ACTIVITY RECOMMENDATIONS: * Gradual return to full activity over the next 2-3 weeks. * No lifting - nothing heavier than baby over the next 2-3 weeks. * Do not engage in vigorous exercise, sexual activity or sports until cleared by your physician. * Do not drive or operate any motorized equipment until cleared by your physician. * You may shower/bathe daily. MEDICATIONS: For discomfort or pain, you may use Acetaminophen (Tylenol), Ibuprofen (Advil), or Naproxen (Aleve) following the package directions. For constipation you may use Colace following the package directions. BREAST CARE: If you are not breast feeding: * Wear a supportive bra 24 hours a day for one to two weeks. * Avoid stimulating your breasts and nipples as much as possible during the first few weeks after delivery. * When taking a shower, have the warm water hit your back, not breasts. * When your breasts feel full, apply ice packs. Usually three to four times a day helps ease the discomfort. * Take a mild pain medication (Tylenol / Motrin) when you are uncomfortable. If breast feeding: * Use breast milk to lubricate nipples. Lansinoh cream may be used for sore nipples. You do not need to remove cream prior to breast feeding. If using a different brand of cream, check the label for directions regarding removal of cream prior to nursing. * Wear a supportive bra. * If having problems with breasts or breast feeding, call a literacy consultant or your health care provider. SPECIAL CARE INSTRUCTIONS: When you are discharged from the hospital, it is important for you to follow the instructions listed below: * During the first week at home, you should be able to care for yourself and your baby. In addition, the usual light household activities are encouraged. * Limit your activities to the way you feel. Do not try to clean the house or move furniture. Be sensible. * If you actively engage in sports and have done so up until the time of your delivery, you may resume these activities as soon as you feel able. This may take up to one month or even longer. Use good judgment. * Continue to take your vitamins for at least six weeks after the of your baby. * Your diet need not be limited unless you were on a special diet before your delivery. Breast-feeding mothers need around 2500 calories per day and at least 64-80 ounces of fluid per day (8 to 10 glasses). * You should eat foods from the four major food groups. Crash diets or fad diets are to be avoided. Eating lean meats, fresh fruits and vegetables, low-fat dairy products, high fiber foods and a regular exercise program, will help you get back to your pre- weight without putting your health at risk. * Constipation is sometimes a problem after delivery. Take a mild laxative as needed. If breast feeding, Milk of Magnesia is acceptable to use. You may use a suppository or Fleets enema. * A daily shower or tub bath is suggested. Wash incision daily with warm soapy water and pat dry. It doesn't need to be covered unless drainage is present. * A bloody vaginal discharge will usually continue until around four weeks . A small amount of bleeding may continue for as long as six weeks. Vaginal discharge changes from the bright red bleeding after delivery to pink then brownish and finally yellowish-pink before becoming white and disappearing. * Bleeding may increase with activity. Your first period may come in 4-8 weeks. If you are breast feeding, your period may be delayed even longer. * [place] (sex) can begin whenever both you and your partner feel comfortable and do not have any form of genital infection. It is recommended that you wait at least six weeks for internal and external healing to occur. If you have questions, please talk to your health care practitioner. A condom should be used to prevent infection and . * Foreplay, gentle intercourse and lubrication is very important the first several times to prevent pain. A water-based lubricant such as K-Y jelly or Astroglide may be used. * If you have RH negative blood and your baby is RH positive, you will receive RHOGAM by injection prior to discharge. The nurse will give you a card to keep with you that has the date and place that you received RHOGAM after delivery. * During your care, you had a Rubella screen done to check for the presence of rubella antibodies in your blood. If your test was negative, you will receive a Rubella vaccine prior to discharge. This vaccine may cause a fever, soreness at the injection site and flu-like symptoms. If these symptoms persist, notify your health care practitioner. is not advised for one month after a Rubella vaccine. * Verbalizes understanding of car seat law as reviewed with patient nursing. * Car Seat hand-out given and reviewed with patient by nursing. * Shaken baby information reviewed with patient by nursing. Call you doctor if: * Heavy bleeding (saturating several pads an hour) or passing clots the size of your fist. * A fever >101 degrees F (38.3 degrees C) on two occasions four hours apart and /or chills. * Unusual pain in the pelvic or vaginal areas. * Call the doctor for any increased redness, drainage or swelling around the incision and any pain unrelieved by prescribed pain medication. * "Baby Blues" lasting longer than two weeks. If you have any questions or concerns, call your health care practitioner at . FOLLOW UP VISIT: * Please call the office at to schedule a 6 week examination. It is important you keep this appointment. It is important for you to make arrangements for either yearly or twice yearly check-ups thereafter. Current Hospital Diet Patient's current hospital diet: Regular OB Diet Discharge Diet Recommended Diet: Regular Diet Procedures Procedures Performed: Repeat Caesarean Section; Delivery of a live male child at 1041 Pending Studies Studies pending at discharge: no Medical Emergencies . Who to Call and When: Medical Emergencies: If at any time you feel your situation is an emergency, please call [phone] immediately. . Non-Emergent Contact Non-Emergency issues call your: Channeling Machine Operator . . "Provider Documentation" section prepared by Claudio Zamarripa. . VTE Core Measure Inpt VTE Proph given/why not?: SCD's Resident Involvement: Resident Care Provided Care Provided: OB Delivery
[2017-02-17 07:20] VITALS: BP 130/83; PULSE 91; TEMP 37.1
[2017-02-17] MEDS: SULFACETAMIDE SODIUM 10% OPR SCH (07:57)
[2017-02-17] MEDS: DOCUSATE SODIUM 100 MG CAP PO SCH (07:57)
[2017-02-17] MEDS: PRENATAL VITAMIN TAB PO SCH (07:57)
[2017-02-17] MEDS: SIMETHICONE 80 MG CHEW PO SCH (07:57)
[2017-02-17 08:11] LABS: HEMATOCRIT 35.9 % (37-47)
[2017-02-17 10:40] VITALS: BP_DIAS 83; PULSE 91; TEMP 37.1
--- NOTE | 2017-02-19 10:17 | DISCHARGE SUMMARY ---
ADMISSION DIAGNOSES: 1. Intrauterine at 39 weeks. 2. History of previous section. POSTOPERATIVE DIAGNOSES: Same. PROCEDURE: Repeat lower transverse section. HISTORY OF PRESENT ILLNESS: The patient is a 31-year-old white female, 2, para 2 with an intrauterine of 39 plus weeks, who presents for repeat section. Her first was complicated by failure to descend, thick meconium and non-reassuring heart rate tracing, to deliver an 8-pound 11-ounce baby by delivery. She declined trial of labor. She declined tubal ligation. She has diet-controlled gestational diabetes that has been well controlled. For the rest of detailed history and physical, please see her dictated history and physical. ASSESSMENT: This is a 2, para 2 at 39 weeks, who presents for repeat section. HOSPITAL COURSE: The patient was admitted and underwent a repeat section to deliver a viable male in cephalic presentation with Apgars of 8 and 9. Normal uterus, tubes and ovaries were noted bilaterally. Estimated blood loss was 600 mL. The patient's postoperative course was uncomplicated. She tolerated a regular diet, voided after the removal of her catheter, ambulated without difficulty, had her pain well controlled on oral pain medications. She was discharged home on postoperative day #2 and will return in 6 weeks for routine care. Her discharge H&H was 12.3 and 35.9.
== END 2017-02-17 11:05 | disposition home or self-care (01) | DRG 766 ==
LOC: C.LD 07:22 → EDSTATUS 09:48 → C.OBG 16:40
PROVIDERS: ADMIT Obstetrics & Gynecology; ATTEND Obstetrics & Gynecology
PROC: 10D00Z1 Extraction of Products of Conception, Low, Open Approach (ICD-10-PCS; principal; 2017-02-15 09:00)
DX: O24.420 Gestational diabetes mellitus in childbirth, diet controlled (principal); Z37.0 Single live birth; O69.81X0 Labor and delivery complicated by cord around neck, without compression, not applicable or unspecified; O34.211 Maternal care for low transverse scar from previous cesarean delivery; N85.8 Other specified noninflammatory disorders of uterus; Z3A.39 39 weeks gestation of pregnancy; Z23 Encounter for immunization

== ENCOUNTER → 2017-04-01 | Outpatient (CLI) | payer BC ==
[~2017-04-01] MED LIST changes: +MTR600X PO; +OXYC-57 PO
== END | disposition home or self-care (01) ==
LOC: C.PAPS 10:47
PROVIDERS: ATTEND Obstetrics & Gynecology
DX: Z01.419 Encounter for gynecological examination (general) (routine) without abnormal findings (principal)